=== PATIENT | female | born 1980 | race Hispanic/Latino ===

== ENCOUNTER 2019-05-04 11:14 | Inpatient (IN) | payer OTHER, SELFPAY ==
[2019-05-04] MEDS ORDERED: Ondansetron PF 4 MG/2 ML Vial IVP PRN (11:59)
[2019-05-04] MEDS ORDERED: Promethazine HCl 25 MG/ML VIAL IM PRN (11:59)
[2019-05-04] MEDS ORDERED: NS / Oxytocin 40 units/1000ml 1,000 ML IV PRN (11:59)
[2019-05-04] MEDS ORDERED: Acetaminophen 500 MG TAB PO PRN (11:59)
[2019-05-04] MEDS ORDERED: Lidocaine 1% (PF) 30 ML VIAL SC PRN (11:59)
[2019-05-04 12:12] LABS: Hemoglobin 15.4 g/dL (12.0-16.0); Mean Corpuscular HGB CONC 34.6 g/dL (32.0-36.0); Mean Corpuscular Hemoglobin 32.7 pg (27.0-31.0); Mean Corpuscular Volume 94.4 fL (78.0-98.0); Mean Platelet Volume 9.2 fL (7.4-10.4); Platelet Count 189 thou/uL (130-400); RBC Distribution Width 13.4 % (11.5-14.5); White Blood Cell (WBC) Count 9.4 thou/uL (4.8-10.8)
[2019-05-04] MEDS ORDERED: Penicillin G Potassium 5 MILL.UNITS VIAL ONE (12:25)
[2019-05-04] MEDS ORDERED: Penicillin G Potassium 5 MILL.UNITS in Sodium Chloride 0.9% 100 ML IVPB ONE (12:45)
[2019-05-04 12:49] LABS: HBSAg Index 0.32 S/CO (0-0.99); Hep B Surf Ag Non-Reactive S/CO (NonReactive); Syphilis Antibody Nonreactive (Nonreactive); Syphilis Antibody Index 0.04 S/CO (<1.00 Non-Reactive)
--- NOTE | 2019-05-04 12:56 | PDOC.FPROB ---
FMR OB H&P: HPI - History of Present Illness Chief Complaint: IOL History of Present Illness: 39 yo at 39.0 wks by 9.6wk US here for IOL. Patient was seen at [facility] today by Dr. Almazan. On her way to [facility] she was having contractions which stopped at [facility]. She was found to be 4cm dilated at that visit. Pt lives approx 1.5hrs away so the decision was made to induce. History pertinent for GBS pos, and HSV1 positive. had painful genital lesions approx 6 months ago and tested positive for HSV1. Patient was also tested, patient denies ever having burning, painful lesions. At 36 wks she was started on prophylactic valtrex 500mg bid and endorses compliance. Denies current lesions or burning. Primary Care Physician: [facility]- Norah FMR OB H&P: Current - Care : 4 Para: 3 Gestational age: 39.0 Due date: 05/11/19 Dating Criteria: 9.6wk US Course/Complications: GBS positive Asymptomatic HSV1 serologic testing AMA - OB Labs Blood type: O RH: positive Antibody Screen: negative HIV: negative RPR: negative HepBsAg: negative Rubella: non-immune Quad screen: negative Gonorrhea: negative Chlamydia: negative A1c: 4.9 GBS: positive H&H: 14.5/41.4 Platelets: 273 FMR OB H&P: History - OB History OB History: 3 term vaginal deliveries 0 miscarriages 0 c/s - Surgical History Sx History: appendix age 4 - Social History Social History: no smoking/ EtOH/ rec drugs FMR OB H&P: Medications - Current Home Medications: Medication Instructions Recorded Confirmed Type Vitamin 1 tablet PO DAILY 05/04/19 05/04/19 History valACYclovir HCl [valACYclovir] 1 tab PO BID 05/04/19 05/04/19 History Allergies/Adverse Reactions: Allergies Allergy/AdvReac Type Severity Reaction Status Date / Time No Known Allergies Allergy Verified 05/04/19 12:30 FMR OB H&P: ROS - Review of Systems General: denies: fever/chills Eyes: reports: floaters ENT: denies: sore throat, pain with swallowing Cardiovascular: denies: chest pain, palpitation, edema Respiratory: denies: cough, shortness of breath Gastrointestinal: denies: diarrhea, bright red blood Genitourinary (Female): denies: dysuria, vaginal discharge Musculoskeletal: denies: pain, decrease range of motion Neurologic: denies: seizures, loss of counsciousness Integumentary: denies: itching, rash FMR OB H&P: Vital Signs - Maternal Vital signs: 112/70 HR: 73 RR: 18 - Heart Tones Variability: moderate Acceleration: present Deceleration: absent Category: category 1 [place] contractions every: 3-8min FMR OB H&P: Physical Exam - Physical Exam General: NAD, awake, alert and oriented HEENT: MMM Chest: non-tender to palpation Heart: RRR, normal S1/S2, no murmurs/rubs/gallops General: CTAB, no respiratory distress, no wheezing Abdomen: soft, gravid Musculoskeletal: pulses present, FROM in all four extremities Neurological: cranial nerves II through XII intact Skin: no rash (no lesions noted on labia, vaginal song, skin surrounding vaginal) Psychiatric: intact recent and remote memory - Pelvic Exam Vulva: normal hair distribution Deviation from normal: cottage cheese discharge on speculum exam Cervix: no masses, no lesions SVE: 4/50/-2 FMR OB H&P: Results - Labs Lab results: Laboratory Results - last 24 hr 05/04/19 05/04/19 05/04/19 11:52 11:52 11:52 WBC 9.4 RBC 4.70 Hgb 15.4 Hct 44.4 MCV 94.4 MCH 32.7 H MCHC 34.6 RDW 13.4 Plt Count 189 MPV 9.2 Syphilis IgG/IgM Ab Nonreactive Blood Type O POSITIVE Antibody Screen NEGATIVE FMR OB H&P: A/P - Problem List (1) Supervision of normal IUP (intrauterine ) in multigravida Current Visit: Yes Status: Acute Code(s): Z34.80 - ENCOUNTER FOR SUPRVSN OF NORMAL , UNSP TRIMESTER (2) AMA (advanced maternal age) multigravida 35+ Current Visit: Yes Status: Acute Code(s): O09.529 - SUPERVISION OF ELDERLY MULTIGRAVIDA, UNSPECIFIED TRIMESTER (3) HSV-1 infection Current Visit: Yes Status: Acute Code(s): B00.9 - HERPESVIRAL INFECTION, UNSPECIFIED (4) Positive GBS test Current Visit: Yes Status: Acute Code(s): B95.1 - STREPTOCOCCUS, GROUP B, CAUSING DISEASES CLASSD ELSWHR Discussion: Date/Time: 05/04/19 3714 1. TIUP will continue to monitor and plan to start with pitocin 2. GBS pos will start on penicillin 3. HSV1 positive, asymptomatic -has been on prophylactic valtrex -no lesions noted on speculum exam 4. AMA quad screen was negative 5. candadiasis -initiate treatment post- This H&P was discussed with Dr. Best who agree with the above documentation and plan. Signature: Natanael Brock DO, PGY3 Addendum - Attending - Attending Attestation Date/Time: 05/04/19 8821 I personally evaluated the patient and discussed the management with Dr. Brock. I agree with the History, Examination, Assessment and Plan documented above with any addition or exceptions noted below.
[2019-05-04 12:58] VITALS: BMI 30.7
[2019-05-04] MEDS ORDERED: NS w/ Oxytocin 10 units 500 ML IV SCH (15:15)
[2019-05-04] MEDS: Penicillin G 2.5 MILL.units 2.5 MILL.UNITS in Premix Bag 1 BAG IVPB SCH ×2 (16:54→21:06)
--- NOTE | 2019-05-04 17:00 | PDOC.LDPN ---
Labor & Delivery Progress Note - Subjective Subjective: comfortable - Objective Vital signs reviewed and normal: yes General: NAD, resting Uterine fundus: non tender Dilation: 4 Effacement: 50% Station: -2 FHT: category 1 [place] contractions every: 2-4min - Assessment (1) Supervision of normal IUP (intrauterine ) in multigravida Code(s): Z34.80 - ENCOUNTER FOR SUPRVSN OF NORMAL , UNSP TRIMESTER Current Visit: Yes Status: Acute (2) AMA (advanced maternal age) multigravida 35+ Code(s): O09.529 - SUPERVISION OF ELDERLY MULTIGRAVIDA, UNSPECIFIED TRIMESTER Current Visit: Yes Status: Acute (3) HSV-1 infection Code(s): B00.9 - HERPESVIRAL INFECTION, UNSPECIFIED Current Visit: Yes Status: Acute (4) Positive GBS test Code(s): B95.1 - STREPTOCOCCUS, GROUP B, CAUSING DISEASES CLASSD ELSWHR Current Visit: Yes Status: Acute Plan: continue plan of care, labor augmentation (pitocin) -: 1. term IUP at 39wks here for IOL -continue with pitocin to optomize contraction toco -recheck in 2 hrs -expectant mgmt 2. AMA 3. HSV1 pos -on prophylactic valcyclovir -no lesions noted on speculum exam 4. GBS pos -PCN x1, started at 13:00, about to receive 2nd dose
--- NOTE | 2019-05-04 19:30 | PDOC.LDPN ---
Labor & Delivery Progress Note - Subjective Subjective: comfortable - Objective Vital signs reviewed and normal: yes General: NAD Uterine fundus: non tender SVE: At 19:15 by Norah Dilation: 5 Effacement: 50% Station: -2 FHT: category 1, variability present [place] contractions every: Q2-3 min - Assessment (1) Term delivered Code(s): O80 - ENCOUNTER FOR FULL-TERM UNCOMPLICATED DELIVERY Current Visit: Yes Status: Acute (2) AMA (advanced maternal age) multigravida 35+ Code(s): O09.529 - SUPERVISION OF ELDERLY MULTIGRAVIDA, UNSPECIFIED TRIMESTER Current Visit: Yes Status: Acute (3) HSV-1 infection Code(s): B00.9 - HERPESVIRAL INFECTION, UNSPECIFIED Current Visit: Yes Status: Acute (4) Positive GBS test Code(s): B95.1 - STREPTOCOCCUS, GROUP B, CAUSING DISEASES CLASSD ELSR Current Visit: Yes Status: Acute Plan: continue plan of care, labor augmentation, pitocin for augmentation -: 39 year old at 39 wks by 9.6 wk sono presents for IOL with pitocin 1. TIUP - Cervical check 50/-2 at 19:15 check - Continue pitocin for augmentation - Contractions q2-3 minutes - Consider AROM at next check if head engaged 2. AMA - Quad screen negative 3. GBS positive - s/p 2 doses of penicillin, adequately treated 4. HSV positive, asymptomatic - Pelvic exam on admission negative for lesions - Patient on prophylaxis Dispo: Continue augmentation with pitocin. Possible AROM at next check if head engaged.
[2019-05-04] MEDS: Lactated Ringer's 1,000 ML IV SCH ×2 (21:08)
--- NOTE | 2019-05-04 21:17 | PDOC.LDPN ---
Labor & Delivery Progress Note - Subjective Subjective: painful contractions - Objective Vital signs reviewed and normal: yes General: NAD Uterine fundus: non tender SVE: at 21:15 by Norah Dilation: 6 Effacement: 50% Station: -2 FHT: category 2, variability present [place] contractions every: q1min - Assessment (1) Term delivered Code(s): O80 - ENCOUNTER FOR FULL-TERM UNCOMPLICATED DELIVERY Current Visit: Yes Status: Acute (2) AMA (advanced maternal age) multigravida 35+ Code(s): O09.529 - SUPERVISION OF ELDERLY MULTIGRAVIDA, UNSPECIFIED TRIMESTER Current Visit: Yes Status: Acute (3) HSV-1 infection Code(s): B00.9 - HERPESVIRAL INFECTION, UNSPECIFIED Current Visit: Yes Status: Acute (4) Positive GBS test Code(s): B95.1 - STREPTOCOCCUS, GROUP B, CAUSING DISEASES CLASSD ELSR Current Visit: Yes Status: Acute -: 39 year old at 39.0 wks by 9.6 wk sono presents for IOL with pitocin 1. TIUP - Cervical check 6/50/-2 at 21:15 check - Continue pitocin for augmentation; on 6U pitocin - Contractions q1 minute - Category 2 strip, variables present - Consider AROM at next check if head engaged - Stadol for pain control 2. AMA - Quad screen negative 3. GBS positive - s/p 2 doses of penicillin, adequately treated 4. HSV positive, asymptomatic - Pelvic exam on admission negative for lesions - Patient on prophylaxis Dispo: Continue augmentation with pitocin. Possible AROM at next check if head engaged.
[2019-05-04] MEDS ORDERED: Butorphanol Tartrate 1 MG/ML VIAL SLOW IVP PRN (21:28)
[2019-05-04] MEDS ORDERED: Butorphanol Tartrate 1 MG/ML VIAL ONE (21:32)
[2019-05-04] MEDS ORDERED: Lidocaine 1% (PF) 30 ML VIAL ONE (23:40)
--- NOTE | 2019-05-05 00:02 | PDOC.EVN ---
Event Note - Event Note Event Note: Short Delivery Note. See Resident note for details. I supervised and assisted with the of a live, vigorous, male . No complications. Mom and baby doing well. Baby and Mom bonding with skin to skin.
[2019-05-05] MEDS ORDERED: Ibuprofen 800 MG TAB PO SCH (00:45)
[2019-05-05] MEDS: Penicillin G 2.5 MILL.units 2.5 MILL.UNITS in Premix Bag 1 BAG IVPB SCH (02:08)
[2019-05-05] MEDS ORDERED: Milk Of Magnesia 30 ML UDCUP PO PRN (02:09)
[2019-05-05] MEDS ORDERED: Preparation H Ointment 28 GM TUBE PR PRN (02:09)
[2019-05-05] MEDS ORDERED: Lanolin Ointment 7 GM TUBE TOP PRN (02:09)
[2019-05-05] MEDS ORDERED: diphenhydrAMINE 25 MG CAP PO PRN (02:09)
[2019-05-05] MEDS ORDERED: Ondansetron PF 4 MG/2 ML Vial IVP PRN (02:09)
[2019-05-05] MEDS ORDERED: Bisacodyl 10 MG SUPP PR PRN (02:09)
[2019-05-05] MEDS ORDERED: NS / Oxytocin 40 units/1000ml 1,000 ML IV SCH (02:09)
--- NOTE | 2019-05-05 03:55 | PDOC.PP ---
Post Progress Note Post Day #: 1 Subjective: Patient doing well. No significant overnight events. Patient tolerating PO. Lochia minimal. PO intake tolerated: yes Flatus: yes Ambulation: yes Vital Signs (12 hours) Pulse Ox 05/04/19 20:00 98 Weight Weight 81.193 kg - Physical Examination General: NAD Cardiovascular: RRR Respiratory: non-labored breathing Abdominal: + bowel sounds, lochia (minimal), no distention Fundus firm & at: below umbilicus Skin: no rash Neurological: no gross focal deficits Psychiatric: A&Ox3, normal affect Result Diagrams: 05/04/19 11:52 Additional Labs: Post Labs Blood Type O POSITIVE 05/04/19 11:52 Hep Bs Antigen Non-Reactive S/CO (NonReactive) 05/04/19 11:52 (1) Term delivered Code(s): O80 - ENCOUNTER FOR FULL-TERM UNCOMPLICATED DELIVERY Status: Acute (2) AMA (advanced maternal age) multigravida 35+ Code(s): O09.529 - SUPERVISION OF ELDERLY MULTIGRAVIDA, UNSPECIFIED TRIMESTER Status: Acute (3) HSV-1 infection Code(s): B00.9 - HERPESVIRAL INFECTION, UNSPECIFIED Status: Acute (4) Positive GBS test Code(s): B95.1 - STREPTOCOCCUS, GROUP B, CAUSING DISEASES CLASSD ELSWHR Status : Acute - Assessment/Plan 39 year old --> P4 delivered TAGA M at 23:43 on 05/04 via . Apgars 9/9 1. TIUP, delivered - Routine PP care - PP day #1 - Lochia minimal - No complications 2. AMA - Genetic screen normal 3. HSV-1 - No active lesions on admission to L&D - Continue ppx Dispo: Given late delivery, anticipate d/c tomorrow Addendum - Attending - Attending Attestation Date/Time: 05/06/19 1034 I personally evaluated the patient and discussed the management with Dr. Almazan yesterday morning. I agree with the History, Examination, Assessment and Plan documented above with any addition or exceptions noted below.
--- NOTE | 2019-05-05 05:27 | DN ---
DATE OF PROCEDURE: 05/04/2019 RESIDENT PHYSICIAN: Debra Almazan DO. PROCEDURE PERFORMED: Vaginal delivery. DIAGNOSES: 1. Term intrauterine , delivered. 2. Group B Streptococcus positive status post adequate treatment with penicillin. 3. Advanced maternal age. 4. Herpes simplex virus, asymptomatic with no active lesion. INDICATIONS: This is a 39-year-old female, who presented to clinic for routine exam and was found to have a cervical check of 03/27/-3. The patient lives an hour [place] a half away and states that she was having contractions all the way over from her house. The patient was admitted to Labor and Delivery for elective induction of labor at 39 weeks. DESCRIPTION OF PROCEDURE: After an uneventful antepartum course, a TAGA male infant was born to a 39-year-old -0-3 at 39 weeks via spontaneous vaginal delivery on 05/04/2019 at 2344 hours. The was delivered over an intact perineum in the occipitoanterior position, anterior shoulder was delivered and the remainder of the body followed. No nuchal cords were noted. was bulb suctioned at the perineun, stimulated, and dried. Infant was noted to be vigorous and was handed to the mother. Cord was then clamped and cut and cord blood collected. Placenta was delivered intact with a three-vessel cord noted and discarded. Perineum was evaluated for lacerations and no lacerations were noted. No vaginal lacerations were noted. There was no bleeding after delivery of the placenta. The fundus was noted to be firm and no clots were expressed. The mother will go to for routine recovery/care. The infant will go to nursery for routine care. Apgars were 9 and 9 at 1 and 5 minutes respectively. Of note, the patient was GBS positive, but was adequately treated with penicillin times at least two doses. The patient is also HSV positive and has been on prophylaxis. She had a very thorough pelvic exam performed prior to induction of labor and no active lesions were noted and the patient is asymptomatic. Job ID: [id number] MTDD
[2019-05-05] MEDS: Ibuprofen 800 MG TAB PO SCH ×3 (06:18→22:14)
[2019-05-05] MEDS ORDERED: Adacel (T-DAP) 0.5 ML SYRINGE IM ONE (09:00)
[2019-05-05] MEDS: Prenatal Vitamin 1 TAB PO SCH (09:07)
[2019-05-05] MEDS: Docusate Calcium (SURFAK) 240 MG CAP PO SCH ×2 (09:07→22:14)
[2019-05-05] MEDS: Ferrous Sulfate 325 MG TAB PO SCH ×2 (09:08→16:00)
[2019-05-06] MEDS: Ibuprofen 800 MG TAB PO SCH (05:22)
[2019-05-06] MEDS: Ferrous Sulfate 325 MG TAB PO SCH (08:19)
[2019-05-06] MEDS: Docusate Calcium (SURFAK) 240 MG CAP PO SCH (08:35)
[2019-05-06] MEDS: Prenatal Vitamin 1 TAB PO SCH (08:35)
[2019-05-06 08:41] VITALS: BP 127/57; TEMP 98.2
--- NOTE | 2019-05-06 11:17 | PDOC.PP ---
Post Progress Note Post Day #: 2 Subjective: Patient doing well. No significant overnight events. Patient tolerating PO. Ambulating without difficulty. PO intake tolerated: yes Flatus: yes Ambulation: yes Vital Signs (12 hours) Temp Pulse Resp BP Pulse Ox 05/06/19 08:00 98.2 F 87 18 127/57 L 99 05/06/19 05:05 97.6 F 72 18 112/67 Weight Weight 81.193 kg - Physical Examination General: NAD Cardiovascular: RRR Respiratory: clear to auscultation bilaterally Abdominal: + bowel sounds, lochia (minimal), no distention Fundus firm & at: below umbilicus Skin: no rash Neurological: no gross focal deficits Psychiatric: A&Ox3, normal affect Result Diagrams: 05/04/19 11:52 Additional Labs: Post Labs Blood Type O POSITIVE 05/04/19 11:52 Hep Bs Antigen Non-Reactive S/CO (NonReactive) 05/04/19 11:52 (1) Term delivered Code(s): O80 - ENCOUNTER FOR FULL-TERM UNCOMPLICATED DELIVERY Status: Acute (2) AMA (advanced maternal age) multigravida 35+ Code(s): O09.529 - SUPERVISION OF ELDERLY MULTIGRAVIDA, UNSPECIFIED TRIMESTER Status: Acute (3) HSV-1 infection Code(s): B00.9 - HERPESVIRAL INFECTION, UNSPECIFIED Status: Acute (4) Positive GBS test Code(s): B95.1 - STREPTOCOCCUS, GROUP B, CAUSING DISEASES CLASSD ELSWHR Status : Acute - Assessment/Plan 39 year old --> P4 delivered TAGA M infant at 23:43 on 05/04 via . Apgars 9/9 1. TIUP, delivered - Routine PP care - PP day #2 - Lochia minimal - No complications 2. AMA - Genetic screen normal 3. HSV-1 - No active lesions on admission to L&D - Continue ppx Dispo: Plan for d/c home today. Addendum - Attending - Attending Attestation Date/Time: 05/07/19 1169 I personally evaluated the patient and discussed the management with Dr. Almazan yesterday morning. I agree with the History, Examination, Assessment and Plan documented above with any addition or exceptions noted below.
== END 2019-05-06 14:10 | disposition home or self-care (01) | DRG 806 ==
LOC: L&D 11:14 → 3SW 05-05 02:56
PROVIDERS: ADMIT Family Medicine; ATTEND Family Medicine
PROC: 10907ZC Drainage of Amniotic Fluid, Therapeutic from Products of Conception, Via Natural or Artificial Opening (ICD-10-PCS; principal; 2019-05-04)
PROC: 10E0XZZ Delivery of Products of Conception, External Approach (ICD-10-PCS; 2019-05-04)
PROC: 3E0P7VZ Introduction of Hormone into Female Reproductive, Via Natural or Artificial Opening (ICD-10-PCS; 2019-05-04)
PROC: 3E033VJ Introduction of Other Hormone into Peripheral Vein, Percutaneous Approach (ICD-10-PCS; 2019-05-04)
DX: O99.824 Streptococcus B carrier state complicating childbirth (principal); O98.52 Other viral diseases complicating childbirth; Z37.0 Single live birth; O98.82 Other maternal infectious and parasitic diseases complicating childbirth; B00.9 Herpesviral infection, unspecified; B37.9 Candidiasis, unspecified; O77.0 Labor and delivery complicated by meconium in amniotic fluid; Z3A.39 39 weeks gestation of pregnancy
CPT/HCPCS: 85027; 86780; 86850; 86900; 86901; 87340; J0595; J2001; J2540; J2590